=== PATIENT | female | born 1990 | race Two or more races ===

== ENCOUNTER 2021-03-20 04:02 | Emergency (ER) | payer OTHER ==
[~2021-03-20] VITALS: Ht 170.2 cm; Wt 72.6 kg
== END 2021-03-20 12:30 | disposition home or self-care (01) ==
LOC: ER 04:02
DX: O26.51 Maternal hypotension syndrome, first trimester (principal); Z3A.01 Less than 8 weeks gestation of pregnancy

== ENCOUNTER 2021-05-07 04:28 | Emergency (ER) | payer OTHER ==
[~2021-05-07] VITALS: Ht 170.2 cm; Wt 74.8 kg
[2021-05-07] MEDS ORDERED: PROMETRIUM200 MG (04:53)
== END 2021-05-07 13:42 | disposition home or self-care (01) ==
LOC: ER 04:28
DX: O26.851 Spotting complicating pregnancy, first trimester (principal); O26.891 Other specified pregnancy related conditions, first trimester; O23.41 Unspecified infection of urinary tract in pregnancy, first trimester; Z3A.13 13 weeks gestation of pregnancy

== ENCOUNTER 2021-07-26 20:16 | Outpatient (CLI) | payer OTHER ==
[~2021-07-26 20:16] MED LIST: PROMETRIUM200 MG
[2021-07-26] MEDS ORDERED: PRENATAL DHA200 MG (21:11)
== END 2021-07-27 09:40 | disposition home or self-care (01) ==
LOC: OBS/DEL 20:16
PROVIDERS: ATTEND Obstetrics & Gynecology
DX: O26.892 Other specified pregnancy related conditions, second trimester (principal); Z3A.24 24 weeks gestation of pregnancy; T14.8XXA Other injury of unspecified body region, initial encounter; V49.9XXA Car occupant (driver) (passenger) injured in unspecified traffic accident, initial encounter; Y92.488 Other paved roadways as the place of occurrence of the external cause

== ENCOUNTER 2021-11-06 11:01 | Outpatient (CLI) | payer OTHER ==
[~2021-11-06 11:01] MED LIST changes: +PRENATAL DHA200 MG
== END 2021-11-06 11:40 | disposition home or self-care (01) ==
LOC: NST 11:01
PROVIDERS: ATTEND Obstetrics & Gynecology
DX: Z34.83 Encounter for supervision of other normal pregnancy, third trimester (principal)

== ENCOUNTER 2021-11-08 06:31 | Inpatient (IN) | payer OTHER ==
[~2021-11-08] VITALS: Ht 170.2 cm; Wt 86.2 kg
[2021-11-08] MEDS ORDERED: PRENATAL CAPLE1 EAC1 (08:22)
== END 2021-11-10 13:48 | disposition home or self-care (01) | DRG 807 ==
LOC: OB/GYN 06:31 → LDR 06:31 → OB/GYN 13:33
PROVIDERS: ADMIT Obstetrics & Gynecology; ATTEND Obstetrics & Gynecology
PROC: 10E0XZZ Delivery of Products of Conception, External Approach (ICD-10-PCS; principal; 2021-11-08)
PROC: 0W8NXZZ Division of Female Perineum, External Approach (ICD-10-PCS; 2021-11-08)
PROC: 4A1HXCZ Monitoring of Products of Conception, Cardiac Rate, External Approach (ICD-10-PCS; 2021-11-08)
DX: O80 Encounter for full-term uncomplicated delivery (principal); Z37.0 Single live birth; Z3A.39 39 weeks gestation of pregnancy; Z20.822 Contact with and (suspected) exposure to COVID-19